=== PATIENT | male | born 1965 | race Caucasian/White ===

== ENCOUNTER 2016-11-16 13:07 | Emergency (ER) | payer SELFPAY ==
[~2016-11-16] VITALS: Ht 182.9 cm; Wt 97.7 kg
[2016-11-16 13:11] VITALS: BP 161/95; TEMP 97.3
[2016-11-16] MEDS ORDERED: CEPHALEXIN500 M1 PO (15:29)
[2016-11-16] MEDS ORDERED: NORCO 325 MG-51 TAB PO (15:29)
[2016-11-16 20:00] VITALS: PULSE 85
== END 2016-11-16 20:00 | disposition home or self-care (01) ==
LOC: COL.ER 13:07
DX: S62.631B Displaced fracture of distal phalanx of left index finger, initial encounter for open fracture (principal); W31.2XXA Contact with powered woodworking and forming machines, initial encounter; Y92.009 Unspecified place in unspecified non-institutional (private) residence as the place of occurrence of the external cause; S61.225A Laceration with foreign body of left ring finger without damage to nail, initial encounter; S61.227A Laceration with foreign body of left little finger without damage to nail, initial encounter; Z23 Encounter for immunization
CPT/HCPCS: J0690; J1170; J2060; J2405; J7030